=== PATIENT | male | born 1955 ===

== ENCOUNTER 2016-10-16 05:14 | Inpatient (IN) | payer MEDICARE, MEDICAID ==
[2016-10-16] VITALS (16 sets, daily range): BP systolic 100–155; BP diastolic 50–80
[~2016-10-16] VITALS: Ht 157.5 cm; Wt 104.3 kg
[~2016-10-16 05:14] MED LIST: ASPIRIN81 MG ORAL; GLIPIZIDE5 MG ORAL; LANTUS SOL100 UNIT/1 SUBQ; LISINOPRIL20 MG ORAL; METFORMIN HCL1000 M1 ORAL; SIMVASTATIN20 MG ORAL
[2016-10-16] MEDS ORDERED: Bupivacaine w/Epi 0.5% 30ml Vial INJ ONE (06:53)
[2016-10-16] MEDS ORDERED: Surgicel 4in x 8in TOPIC ONE (06:53)
[2016-10-16] MEDS ORDERED: ceFAZolin sod 1 GM in NS 55 ML IVPB ONE (07:00)
[2016-10-16] MEDS ORDERED: LR 1000ml 1,000 ML IVLG SCH (07:13)
[2016-10-16] MEDS ORDERED: Meperidine 25mg/0.5ml Inj IV PRN (07:15)
[2016-10-16] MEDS ORDERED: LORazepam Inj 2mg/ml 1ml IV PRN (07:15)
[2016-10-16] MEDS ORDERED: fentaNYL 100 mcg/2 mL IV PRN (07:15)
[2016-10-16] MEDS ORDERED: Metoclopramide 10mg/2ml Inj IVP PRN (07:15)
[2016-10-16] MEDS ORDERED: Ketorolac 30mg Inj IV PRN (07:15)
[2016-10-16] MEDS ORDERED: DiphenhydrAMINE 50mg/ml Inj IVP PRN (07:15)
[2016-10-16] MEDS ORDERED: Midazolam 2mg/2ml Inj IVP PRN (07:15)
[2016-10-16] MEDS ORDERED: Ketorolac 60mg Inj IV PRN (07:15)
[2016-10-16] MEDS ORDERED: Atropine Inj 1mg/10ml Syr IV PRN (07:15)
[2016-10-16] MEDS ORDERED: Norco 7.5mg/325mg tab ORAL PRN (07:15)
[2016-10-16] MEDS ORDERED: Oxycodone/Acetaminophen 5-325 ORAL PRN (07:15)
[2016-10-16] MEDS ORDERED: Norco 5mg/325mg tab ORAL PRN (07:15)
--- NOTE | 2016-10-16 07:28 | Anethesia Preoperative Eval ---
Anesthesia Pre-op PMH/ROS General Date of Evaluation: Oct 16, 2016 Time of Evaluation: 07:31 Anesthesiologist: Mitzy ASA Score: ASA 3 Mallampati Score Class I : Soft palate, uvula, fauces, pillars visible Class II: Soft palate, uvula, fauces visible Class III: Soft palate, base of uvula visible Class IV: Only hard plate visible Surgeon: Giuliana Diagnosis: Prostate CA Surgical Procedure: Laparoscopic Radical Prostatectomy Anesthesia History: none Family History: no anesthesia problems Allergies: Coded Allergies: No Known Allergies (Unverified , 10/15/16) Medications: see eMAR Past Medical History Cardiovascular: Reports: HTN, other - HL Gastrointestinal/Genitourinary: Reports: GERD, other - Prostate CA Endocrine: Reports: DM Hematology/Immune: Reports: other - Prostate CA Other: obesity - Morbid BMI 43 Anesthesia Pre-op Phys. Exam Physician Exam Last Vital Signs Date Time Temp Pulse Resp B/P Pulse Ox O2 Delivery O2 Flow Rate FiO2 10/16/16 06:03 97.4 74 18 155/80 98 Room Air Constitutional: NAD Neurologic: CN 2-12 intact Cardiovascular: RRR Respiratory: CTA Gastrointestinal: S/NT/ND Airway Exam Mallampati Score: Class II MO: limited ROM: limited Teeth: missing, intact Anesthesia Pre-op A/P Risk Assessment & Plan Assessment: ASA 3 Plan: GA, Glidescope, BIS Status Change Before Surgery: No Pre-Antibiotics Dru Grams Ancef IV Given Within 1 Hr of Incision: Yes Time Given: 07:51 Raúl Kaur MD Oct 16, 2016 07:28
[2016-10-16] MEDS ORDERED: Bupivacaine 0.5% Inj 30 ml vial INJ ONE (07:29)
[2016-10-16] MEDS ORDERED: Midazolam 2mg/2ml Inj ONE (07:30)
[2016-10-16] MEDS ORDERED: Neostigmine 1mg/ml 10ml Inj ONE (07:30)
[2016-10-16] MEDS ORDERED: Glycopyrrolate 0.2mg/ml 1ml Vial ONE (07:30)
[2016-10-16] MEDS ORDERED: Sterile Water Irrig 1000ml IRRIG ONE (07:30)
[2016-10-16] MEDS ORDERED: Ketorolac 30mg Inj ONE (07:30)
[2016-10-16] MEDS ORDERED: LR 1000ml ONE ×2 (07:30)
[2016-10-16] MEDS ORDERED: Propofol 10mg/ml 100ml btl IV ONE (07:30)
[2016-10-16] MEDS ORDERED: Lidocaine 1% MPF 10mg/ml 5ml ONE (07:30)
[2016-10-16] MEDS ORDERED: Nimbex 2mg/ml Inj 10ML IVP ONE (07:30)
[2016-10-16] MEDS ORDERED: NS Irrig 1000ml ONE (07:30)
[2016-10-16] MEDS ORDERED: ProvayBlue 5mg/ml 10ml amp INJ ONE (07:30)
[2016-10-16] MEDS ORDERED: fentaNYL 100 mcg/2 mL IV ONE (07:30)
--- NOTE | 2016-10-16 07:59 | Pre-Procedure Note/Attestation ---
Pre-Procedure Note/Attestation Complete Prior to Procedure Planned Procedure: not applicable Procedure Narrative: laparoscopic prostatectomy Indications for Procedure Pre-Operative Diagnosis: prostate cancer Attestation I attest that I discussed the nature of the procedure; its benefits; risks and complications; and alternatives (and the risks and benefits of such alternatives ), prior to the procedure, with the patient (or the patient's legal agricultural sales representative). I attest that, if there was a reasonable possibility of needing a blood transfusion, the patient (or the patient's legal agricultural sales representative) was given the [facility] standardized written summary, pursuant to the Joesph Nikolay Blood Safety Act ([place] Health and Safety Code # 1645, as amended). I attest that I re-evaluated the patient just prior to the surgery and that there has been no change in the patient's H&P, except as documented below: Juan Giordano MD Oct 16, 2016 07:59
[2016-10-16] MEDS ORDERED: NS Irrig 1000ml IRRIG ONE (08:21)
[2016-10-16] MEDS ORDERED: Acetaminophen (Non formulary) 100 ML IV ONE (09:30)
--- NOTE | 2016-10-16 09:55 | Brief Operative Note ---
Immediate Post Operative Note Operative Note Pre-op Diagnosis: prostate cancer Procedure: Laparoscopic prostatectomy Post-op Diagnosis: same Surgeon: Logan Giordano [place] Attendant: Mazin Rae Anesthesia: general Specimen: yes Complications: none Estimated Blood Loss: minimal Implant(s) used?: No Juan Giordano MD Oct 16, 2016 09:55
[2016-10-16] MEDS ORDERED: HYDROmorphone 1mg/ml Carpuject IVP PRN (10:00)
[2016-10-16] MEDS ORDERED: Ketorolac 30mg Inj IM PRN (10:00)
--- NOTE | 2016-10-16 10:15 | Immediate Post-Op Evaluation ---
Immediate Post-Op Evalulation Immediate Post-Op Evalulation Procedure: Laparoscopic Radical Prostatectomy Date of Evaluation: Oct 16, 2016 Time of Evaluation: 10:24 IV Fluids: 1500 LR Blood Products: 0 Estimated Blood Loss: 200 Urinary Output: 0 Blood Pressure Systolic: 103 Blood Pressure Diastolic: 56 Pulse Rate: 65 Respiratory Rate: 16 O2 Sat by Pulse Oximetry: 100 Temperature (Fahrenheit): 97.7 Pain Score (1-10): 2 Nausea: No Vomiting: No Complications 0 Patient Status: awake, reacts, patent, extubated, none Hydration Status: adequate Dru Grams Ancef IV Given Within 1 Hr of Incision: Yes Time Given: 07:51 Raúl Kaur MD Oct 16, 2016 10:15
[2016-10-16] MEDS: Hydromorphone 0.5mg/0.5ml inj IVP PRN ×2 (10:28→11:11)
[2016-10-16 11:40] LABS: MEAN CORPUSCULAR HEMOGLOBIN 28.2 PG (27.0-31.0); MEAN CORPUSCULAR HGB CONC 31.7 G/DL (32.0-36.0); MEAN CORPUSCULAR VOLUME 89 FL (80-99); MEAN PLATELET VOLUME 6.7 FL (6.5-10.1); PLATELET COUNT 266 K/UL (150-450); RED BLOOD COUNT 5.28 M/UL (4.70-6.10); RED CELL DISTRIBUTION WIDTH 13.5 % (11.6-14.8); WHITE BLOOD COUNT 16.7 K/UL (4.8-10.8)
[2016-10-16 11:51] LABS: ANION GAP 15 (5-15); CALCIUM 8.2 mg/dL (8.6-10.2); CARBON DIOXIDE 25 mEQ/L (20-30); CHLORIDE 99 mEQ/L (98-107); CREATININE 0.8 mg/dL (0.7-1.2); GLOMERULAR FILTRATION RATE > 60 mL/min (>60); HEMOLYSIS 4; POTASSIUM 4.6 mEQ/L (3.4-4.9); SODIUM 139 mEQ/L (135-145)
[2016-10-16 12:01] LABS: BAND NEUTROPHILS % (MANUAL) 2 % (0-8); LYMPHOCYTES % (MANUAL) 10 % (20-45); NEUTROPHILS % (MANUAL) 82 % (45-75); TOTAL CELLS COUNTED 100
[2016-10-16 12:02] LABS: BASOPHILS % (MANUAL) 0 % (0-2); EOSINOPHILS % (MANUAL) 0 % (0-3); PLATELET ESTIMATE ADEQUATE; PLATELET MORPHOLOGY NORMAL
[2016-10-16] MEDS ORDERED: D5 1/2NS w/KCl 20mEq 1,000 ML IV SCH (13:30)
--- NOTE | 2016-10-16 15:17 | History and Physical ---
History of Present Illness General Date patient seen: Oct 16, 2016 Present Illness HPI 61 year old male with hx of HTN, DM, Prostate cancer underwent laparoscopic radical prostatectomy today. Admitted for post op care. Allergies: Coded Allergies: No Known Allergies (Unverified , 10/15/16) Medication History Scheduled Aspirin* (Aspirin*), 81 MG ORAL DAILY, (Reported) Glipizide* (Glipizide*), 5 MG ORAL BIDAC, (Reported) Insulin Glargine (Lantus), 35 SUBQ BEDTIME, (Reported) Lisinopril (Lisinopril*), 20 MG ORAL BID, (Reported) Metformin Hcl* (Metformin Hcl*), 1,000 MG ORAL BIDAC, (Reported) Simvastatin (Zocor), 20 MG ORAL BEDTIME, (Reported) Patient History Healthcare decision maker BRADEN JOSIANE- Resuscitation status Full Code Advanced Directive on File No Past Medical/Surgical History Past Medical/Surgical History: (1) Diabetes (2) HTN (hypertension) (3) Hypercholesteremia (4) Prostate cancer Review of Systems All Other Systems: negative except mentioned in HPI Physical Exam General Appearance: no apparent distress Lines, tubes and drains: peripheral HEENT: normocephalic, atraumatic Neck: non-tender, normal alignment Respiratory/Chest: chest wall non-tender, lungs clear Cardiovascular/Chest: normal peripheral pulses Abdomen: normal bowel sounds, non tender Genitourinary/Rectal: normal genital exam Extremities: normal range of motion Last 24 Hour Vital Signs Date Time Temp Pulse Resp B/P Pulse Ox O2 Delivery O2 Flow Rate FiO2 10/16/16 12:40 97.3 85 17 111/59 95 Room Air 10/16/16 12:15 96.6 84 17 114/58 94 Nasal Cannula 2.0 10/16/16 12:00 97.3 79 16 112/60 93 Nasal Cannula 2.0 10/16/16 11:41 98.0 10/16/16 11:40 98.0 79 14 123/68 96 Nasal Cannula 3.0 10/16/16 11:25 75 18 120/69 100 Nasal Cannula 3.0 10/16/16 11:10 74 14 103/63 100 Nasal Cannula 3.0 10/16/16 10:55 69 15 121/67 100 Simple Mask 6.0 10/16/16 10:50 97.8 10/16/16 10:40 68 16 115/64 100 Simple Mask 6.0 10/16/16 10:28 68 18 106/62 99 Simple Mask 6.0 10/16/16 10:23 69 15 116/68 99 Simple Mask 6.0 10/16/16 10:18 67 26 108/50 99 Simple Mask 6.0 10/16/16 10:15 65 16 100 10/16/16 10:13 97.6 64 18 103/80 99 Simple Mask 6.0 10/16/16 06:03 97.4 74 18 155/80 98 Room Air Intake and Output 10/15/16 10/16/16 19:00 07:00 # Voids 1 Laboratory Tests Test 10/16/16 11:30 White Blood Count 16.7 K/UL (4.8-10.8) H Red Blood Count 5.28 M/UL (4.70-6.10) Hemoglobin 14.9 G/DL (14.2-18.0) Hematocrit 47.0 % (42.0-52.0) Mean Corpuscular Volume 89 FL (80-99) Mean Corpuscular Hemoglobin 28.2 PG (27.0-31.0) Mean Corpuscular Hemoglobin Concent 31.7 G/DL (32.0-36.0) L Red Cell Distribution Width 13.5 % (11.6-14.8) Platelet Count 266 K/UL (150-450) Mean Platelet Volume 6.7 FL (6.5-10.1) Neutrophils (%) (Auto) % (45.0-75.0) Lymphocytes (%) (Auto) % (20.0-45.0) Monocytes (%) (Auto) % (1.0-10.0) Eosinophils (%) (Auto) % (0.0-3.0) Basophils (%) (Auto) % (0.0-2.0) Differential Total Cells Counted 100 Neutrophils % (Manual) 82 % (45-75) H Lymphocytes % (Manual) 10 % (20-45) L Monocytes % (Manual) 6 % (1-10) Eosinophils % (Manual) 0 % (0-3) Basophils % (Manual) 0 % (0-2) Band Neutrophils 2 % (0-8) Platelet Estimate Adequate Platelet Morphology Normal Red Blood Cell Morphology Normal Hypochromasia Sodium Level 139 mEQ/L (135-145) Potassium Level 4.6 mEQ/L (3.4-4.9) Chloride Level 99 mEQ/L (98-107) Carbon Dioxide Level 25 mEQ/L (20-30) Anion Gap 15 (5-15) Blood Urea Nitrogen 8 mg/dL (7-23) Creatinine 0.8 mg/dL (0.7-1.2) Estimat Glomerular Filtration Rate > 60 mL/min (>60) Glucose Level 224 mg/dL (74-106) H Calcium Level 8.2 mg/dL (8.6-10.2) L Height (Feet): 5 Height (Inches): 2.00 Weight (Pounds): 230 Medications Current Medications Medications (Trade) Dose Ordered Sig/Cliff Route PRN Reason Start Time Stop Time Status Last Admin Dose Admin Acetaminophen 650 mg 650 mg Q6H PRN ORAL Mild Pain (Pain Scale 1-3) 10/16/16 10:00 11/15/16 09:59 Cefazolin Sodium/ Dextrose (Ancef/D5W) 110 ml @ 220 mls/hr Q8H IV 10/16/16 16:00 10/17/16 00:29 Dextrose (Dextrose 50%) STAT PRN IV Hypoglycemia 10/16/16 15:00 11/15/16 14:59 Dextrose/ Electrolytes (D5 0.45%NS W/ KCl 20mEq) 1,000 ml @ 100 mls/hr Q10H IV 10/16/16 13:30 11/15/16 13:29 10/16/16 12:59 Glipizide (Glucotrol) 5 mg DAILY ORAL 10/17/16 09:00 11/16/16 08:59 Hydromorphone HCl (Dilaudid) 1 mg Q3H PRN IVP Severe Pain (Pain Scale 7-10) 10/16/16 10:00 10/23/16 09:59 Insulin Aspart (NovoLOG) BEFORE MEALS AND HS SUBQ 10/16/16 16:30 11/15/16 16:29 Ketorolac Tromethamine (Toradol 30mg) 30 mg Q6H PRN IM Moderate Pain (Pain Scale 4-6) 10/16/16 10:00 10/21/16 09:59 Lisinopril (Prinivil) 20 mg BID ORAL 10/16/16 18:00 11/15/16 17:59 Ondansetron HCl (Zofran) 4 mg Q6H PRN IVP Nausea & Vomiting 10/16/16 10:00 11/15/16 09:59 Temazepam (Restoril) 7.5 mg DAILYPRN PRN ORAL Insomnia 10/16/16 10:00 10/23/16 09:59 Assessment/Plan Problem List: (1) laparoscopic retropubic prostatectomy (2) Diabetes ICD Codes: E11.9 - Type 2 diabetes mellitus without complications SNOMED: 59108927 (3) Hypercholesteremia ICD Codes: E78.00 - Pure hypercholesterolemia, unspecified SNOMED: 83938934 (4) Prostate cancer ICD Codes: C61 - Malignant neoplasm of prostate SNOMED: 756792913 (5) HTN (hypertension) ICD Codes: I10 - Essential (primary) hypertension SNOMED: 58537023 Assessment/Plan symptomatic treatment sliding scale insulin coverage pain management enrique IV to 1/2 NS. dvt prophylaxis GORAN CABRAL Oct 16, 2016 15:17
[2016-10-16] MEDS: ceFAZolin sod 2 GM in D5W 110 ML IV SCH ×2 (15:45→23:43)
[2016-10-16] MEDS: NovoLOG Insulin Flexpen SUBQ SCH ×2 (15:59→21:20)
[2016-10-16] MEDS ORDERED: NovoLOG Insulin Flexpen SUBQ SCH (16:30)
[2016-10-16] MEDS: Lisinopril 20mg tab ORAL SCH (17:55)
--- NOTE | 2016-10-16 21:30 | Operative Note - Dictated ---
DATE OF OPERATION: 10/16/2016 SURGEON: Mazin Rae M.D. SOCIAL SCIENCE TEACHER: Juan Giordano M.D. ANESTHESIOLOGIST: Raúl Kaur M.D. PREOPERATIVE DIAGNOSIS: Intraoperative adhesions. POSTOPERATIVE DIAGNOSIS: Intraoperative adhesions. PROCEDURE PERFORMED: Laparoscopic lysis of adhesions. BACKGROUND: The patient is a 61-year-old male who was taken to the operating room by Dr. Juan Giordano for laparoscopic prostatectomy. During the procedure, the dense adhesions in the left lower quadrant were encountered that precludes safe access to the prostate gland and I was requested by Dr. Juan Giordano to swab clean and to perform lysis of adhesions since this procedure is in scope of my surgical qualification. INTRAOPERATIVE FINDINGS: Dense adhesions in left lower quadrant between omentum, sigmoid colon, and anterior abdominal wall. PROCEDURE IN DETAIL: The patient was placed supine. General endotracheal anesthesia was induced. Procedure was started by Dr. Juan Giordano who scrubbed clean. Given the above-mentioned findings, using electrocautery and cold scissors were appropriate. Adhesions between the omentum, anterior abdominal wall, and sigmoid colon were sharply taken down. Hemostasis was confirmed. After that, straight access of the gland was obtained, and Dr. Giordano proceeded with the swab. I inspected the bowel, no injury was found. Mazin Rae M.D. DR: Fabiola JOB#: [id number] CC: ELIZABETH
[2016-10-17 00:14] VITALS: BP 131/74
[2016-10-17 04:00] VITALS: BP 132/69
[2016-10-17] MEDS: NovoLOG Insulin Flexpen SUBQ SCH ×4 (06:21→21:20)
[2016-10-17 08:00] VITALS: BP 131/60
[2016-10-17] MEDS: GlipiZIDE 5mg tab ORAL SCH (08:30)
[2016-10-17] MEDS: Lisinopril 20mg tab ORAL SCH ×2 (08:30→17:41)
[2016-10-17 08:37] LABS: BASOPHILS % (AUTO) 0.5 % (0.0-2.0); EOSINOPHILS % (AUTO) 0.2 % (0.0-3.0); LYMPHOCYTES % (AUTO) 14.6 % (20.0-45.0); MEAN CORPUSCULAR HEMOGLOBIN 29.6 PG (27.0-31.0); MEAN CORPUSCULAR HGB CONC 32.9 G/DL (32.0-36.0); MEAN CORPUSCULAR VOLUME 90 FL (80-99); MONOCYTES % (AUTO) 7.6 % (1.0-10.0); NEUTROPHILS % (AUTO) 77.1 % (45.0-75.0); PLATELET COUNT 242 K/UL (150-450); RED BLOOD COUNT 4.72 M/UL (4.70-6.10); RED CELL DISTRIBUTION WIDTH 13.4 % (11.6-14.8); WHITE BLOOD COUNT 9.5 K/UL (4.8-10.8)
[2016-10-17 08:45] LABS: ANION GAP 13 (5-15); CALCIUM 8.4 mg/dL (8.6-10.2); CARBON DIOXIDE 27 mEQ/L (20-30); CHLORIDE 96 mEQ/L (98-107); CREATININE 0.8 mg/dL (0.7-1.2); GLOMERULAR FILTRATION RATE > 60 mL/min (>60); HEMOLYSIS 3; SODIUM 136 mEQ/L (135-145)
--- NOTE | 2016-10-17 10:26 | 48 Hour Post Anesthesia Eval ---
Post Anesthesia Evaluation Procedure: Laparoscopic Radical Prostatectomy Date of Evaluation: Oct 17, 2016 Time of Evaluation: 06:15 Blood Pressure Systolic: 132 0: 69 Pulse Rate: 78 Respiratory Rate: 18 Temperature (Fahrenheit): 97.7 O2 Sat by Pulse Oximetry: 93 Airway: patent Nausea: No Vomiting: No Pain Intensity: 1 Hydration Status: adequate Cardiopulmonary Status: at baseline Mental Status/LOC: patient returned to baseline Post-Anesthesia Complications: 0 Follow-up care needed: N/A - further care as per primary team JIN BRAVO M.D. Oct 17, 2016 10:26
[2016-10-17] MEDS: Levofloxacin 500mg tab ORAL SCH (10:59)
[2016-10-17 12:00] VITALS: BP 116/64
[2016-10-17 16:00] VITALS: BP 138/71
[2016-10-17] MEDS: Docusate 100mg cap ORAL SCH (17:41)
--- NOTE | 2016-10-17 18:35 | Pulmonology Progress Note ---
Assessment/Plan Problems: (1) laparoscopic retropubic prostatectomy (2) Diabetes (3) Hypercholesteremia (4) Prostate cancer (5) HTN (hypertension) Assessment/Plan improving sliding scale check electrolytes symptomatic treatment Subjective ROS Limited/Unobtainable: No Interval Events: improving, walking around Allergies: Coded Allergies: No Known Allergies (Unverified , 10/15/16) Objective Last 24 Hour Vital Signs Date Time Temp Pulse Resp B/P Pulse Ox O2 Delivery O2 Flow Rate FiO2 10/17/16 17:41 138/71 10/17/16 16:00 97.0 83 19 138/71 95 Room Air 10/17/16 12:00 98.2 77 18 116/64 93 Room Air 10/17/16 10:26 78 18 93 10/17/16 08:30 131/60 10/17/16 08:00 98.4 82 18 131/60 93 Nasal Cannula 2.0 10/17/16 04:00 97.7 78 18 132/69 93 Room Air 10/17/16 00:14 97.9 81 18 131/74 93 Room Air 10/16/16 20:00 97.7 75 18 152/69 95 Nasal Cannula 2.0 Intake and Output 10/16/16 10/17/16 19:00 07:00 Intake Total 2110 ml Output Total 650 ml 450 ml Balance 1460 ml -450 ml IV Total 2110 ml Output Urine Total 450 ml 450 ml Estimated Blood Loss 200 ml # Voids 1 General Appearance: WD/WN HEENT: normocephalic, atraumatic Respiratory/Chest: chest wall non-tender, lungs clear Cardiovascular: normal peripheral pulses, normal rate Abdomen: normal bowel sounds, soft, non tender Genitourinary: normal external genitalia Extremities: no cyanosis, no clubbing Skin: no rash Laboratory Tests 10/17/16 08:15: White Blood Count 9.5, Red Blood Count 4.72, Hemoglobin 13.9L, Hematocrit 42.4, Mean Corpuscular Volume 90, Mean Corpuscular Hemoglobin 29.6, Mean Corpuscular Hemoglobin Concent 32.9, Red Cell Distribution Width 13.4, Platelet Count 242, Mean Platelet Volume 7.0, Neutrophils (%) (Auto) 77.1H, Lymphocytes (%) (Auto) 14.6L, Monocytes (%) (Auto) 7.6, Eosinophils (%) (Auto) 0.2, Basophils (%) (Auto ) 0.5, Sodium Level 136, Potassium Level 4.0, Chloride Level 96L, Carbon Dioxide Level 27, Anion Gap 13, Blood Urea Nitrogen 11, Creatinine 0.8, Estimat Glomerular Filtration Rate > 60, Glucose Level 207H, Calcium Level 8.4L, Free Prostate Specific Antigen [Pending], Percent Free Prostate Specific Ag [Pending] , Prostate Specific Antigen Total [Pending] Current Medications Medications (Trade) Dose Ordered Sig/Cliff Route PRN Reason Start Time Stop Time Status Last Admin Dose Admin Acetaminophen (Tylenol) 650 mg Q6H PRN ORAL Mild Pain (Pain Scale 1-3) 10/16/16 10:00 11/15/16 09:59 Dextrose (Dextrose 50%) STAT PRN IV Hypoglycemia 10/16/16 15:00 11/15/16 14:59 Docusate Sodium (Colace) 100 mg TWICE A DAY ORAL 10/17/16 18:00 11/16/16 17:59 10/17/16 17:41 Glipizide (Glucotrol) 5 mg DAILY ORAL 10/17/16 09:00 11/16/16 08:59 10/17/16 08:30 Hydromorphone HCl (Dilaudid) 1 mg Q3H PRN IVP Severe Pain (Pain Scale 7-10) 10/16/16 10:00 10/23/16 09:59 10/16/16 21:27 Insulin Aspart (NovoLOG) while pt is on npo give o... BEFORE MEALS AND HS SUBQ 10/16/16 16:30 11/15/16 16:29 10/17/16 11:36 Ketorolac Tromethamine (Toradol 30mg) 30 mg Q6H PRN IM Moderate Pain (Pain Scale 4-6) 10/16/16 10:00 10/21/16 09:59 Levofloxacin (Levaquin) 500 mg DAILY ORAL 10/17/16 11:00 10/24/16 10:59 10/17/16 10:59 Lisinopril (Prinivil) 20 mg BID ORAL 10/16/16 18:00 11/15/16 17:59 10/17/16 17:41 Ondansetron HCl (Zofran) 4 mg Q6H PRN IVP Nausea & Vomiting 10/16/16 10:00 11/15/16 09:59 Temazepam (Restoril) 7.5 mg DAILYPRN PRN ORAL Insomnia 10/16/16 10:00 10/23/16 09:59 GORAN CABRAL Oct 17, 2016 18:35
[2016-10-17 20:00] VITALS: BP 140/76
[2016-10-17] MEDS: Lactulose 20gm/30ml UDC ORAL SCH ×2 (22:00→22:17)
[2016-10-18] VITALS: BP 141/83
[2016-10-18 04:00] VITALS: BP 139/81
[2016-10-18] MEDS: NovoLOG Insulin Flexpen SUBQ SCH (06:49)
[2016-10-18 07:00] LABS: BASOPHILS % (AUTO) 0.6 % (0.0-2.0); EOSINOPHILS % (AUTO) 1.3 % (0.0-3.0); LYMPHOCYTES % (AUTO) 22.9 % (20.0-45.0); MEAN CORPUSCULAR HEMOGLOBIN 28.5 PG (27.0-31.0); MEAN CORPUSCULAR HGB CONC 31.8 G/DL (32.0-36.0); MEAN CORPUSCULAR VOLUME 90 FL (80-99); MEAN PLATELET VOLUME 7.2 FL (6.5-10.1); MONOCYTES % (AUTO) 9.7 % (1.0-10.0); NEUTROPHILS % (AUTO) 65.4 % (45.0-75.0); PLATELET COUNT 214 K/UL (150-450); RED BLOOD COUNT 4.79 M/UL (4.70-6.10); RED CELL DISTRIBUTION WIDTH 13.5 % (11.6-14.8); WHITE BLOOD COUNT 8.1 K/UL (4.8-10.8)
[2016-10-18 07:14] LABS: ALANINE AMINOTRANSFERASE 13 U/L (3-41); ALBUMIN/GLOBULIN RATIO 0.9 (1.0-2.7); ANION GAP 12 (5-15); ASPARTATE AMINO TRANSFERASE 16 U/L (5-40); CALCIUM 8.3 mg/dL (8.6-10.2); CARBON DIOXIDE 28 mEQ/L (20-30); CHLORIDE 97 mEQ/L (98-107); CREATININE 0.7 mg/dL (0.7-1.2); GLOMERULAR FILTRATION RATE > 60 mL/min (>60); HEMOLYSIS 3; MAGNESIUM 1.8 mg/dL (1.7-2.5); PHOSPHORUS 2.1 mg/dL (2.5-4.8); POTASSIUM 4.6 mEQ/L (3.4-4.9); SODIUM 137 mEQ/L (135-145); TOTAL PROTEIN 6.9 g/dL (6.6-8.7)
[2016-10-18 08:22] VITALS: BP 143/70
[2016-10-18] MEDS: Levofloxacin 500mg tab ORAL SCH (08:35)
[2016-10-18] MEDS: GlipiZIDE 5mg tab ORAL SCH (08:35)
[2016-10-18 08:36] VITALS: BP 143/70
[2016-10-18] MEDS: Lisinopril 20mg tab ORAL SCH (08:36)
[2016-10-18] MEDS: Lactulose 20gm/30ml UDC ORAL SCH (08:37)
[2016-10-18] MEDS: Docusate 100mg cap ORAL SCH (08:37)
[2016-10-18] MEDS ORDERED: Docusate 100mg cap ORAL SCH (09:00)
--- NOTE | 2016-10-18 10:14 | Pulmonology Progress Note ---
Assessment/Plan Assessment/Plan ASSESSMENT prostate adenocarcinoma s/p 10/16 Laparoscopic radical retropubic prostatectomy with lysis of adhesions postoperative pain HTN DM Hx of Hypercholesteremia PLAN OF CARE s/p surgery course of recovery uneventful biopsy results c/w prostatic adenocarcinoma initially with IVF Garcia with CBI and hand irrigation prn CBI dc Garcia kept , urine clear Garcia changed to leg bag prior to discharge, instructed patient and re care pain management, controlled bowel regimen PT for ambulation tolerated diet ambulated had BM BP management with MARILEE, stable BS management with SS of insulin, stable continue statin stable fro dc home with services scripts provided for abx, stool softener and analgesics fup with surgeon in 1 week case discussed and evaluated by supervising physician Subjective Allergies: Coded Allergies: No Known Allergies (Unverified , 10/15/16) Subjective pain controlled afebrile, no leukocytosis Garcia with clear urine Objective Last 24 Hour Vital Signs Date Time Temp Pulse Resp B/P Pulse Ox O2 Delivery O2 Flow Rate FiO2 10/18/16 08:36 143/70 10/18/16 08:22 97.9 86 20 143/70 94 Room Air 10/18/16 04:00 98.1 77 18 139/81 97 Room Air 10/18/16 00:00 98.6 84 18 141/83 95 Room Air 10/17/16 20:00 98.6 82 18 140/76 94 Room Air 10/17/16 17:41 138/71 10/17/16 16:00 97.0 83 19 138/71 95 Room Air 10/17/16 12:00 98.2 77 18 116/64 93 Room Air 10/17/16 10:26 78 18 93 Intake and Output 10/17/16 10/18/16 19:00 07:00 Intake Total 1050 ml 180 ml Output Total 1450 ml 1625 ml Balance -400 ml -1445 ml Intake Oral 750 ml 180 ml IV Total 300 ml Output Urine Total 1450 ml 1625 ml # Bowel Movements 5 General Appearance: no acute distress, other - A/A/O x 3 German speaking male HEENT: normocephalic, atraumatic, anicteric, mucous membranes moist Respiratory/Chest: lungs clear, no respiratory distress Cardiovascular: normal peripheral pulses, normal rate, regular rhythm Abdomen: normal bowel sounds, soft, non tender, non distended Genitourinary: normal external genitalia, other - Garcia with clear kamaljit color urine Extremities: no edema, pedal pulses normal Neurologic/Psychiatric: no motor/sensory deficits, alert, oriented x 3, responsive Musculoskeletal: normal muscle bulk Laboratory Tests 10/18/16 05:35: White Blood Count 8.1, Red Blood Count 4.79, Hemoglobin 13.6L, Hematocrit 42.9, Mean Corpuscular Volume 90, Mean Corpuscular Hemoglobin 28.5, Mean Corpuscular Hemoglobin Concent 31.8L, Red Cell Distribution Width 13.5, Platelet Count 214, Mean Platelet Volume 7.2, Neutrophils (%) (Auto) 65.4, Lymphocytes (%) (Auto) 22.9, Monocytes (%) (Auto) 9.7, Eosinophils (%) (Auto) 1.3, Basophils (%) (Auto ) 0.6, Sodium Level 137, Potassium Level 4.6, Chloride Level 97L, Carbon Dioxide Level 28, Anion Gap 12, Blood Urea Nitrogen 11, Creatinine 0.7, Estimat Glomerular Filtration Rate > 60, Glucose Level 206H, Calcium Level 8.3L, Phosphorus Level 2.1L, Magnesium Level 1.8, Total Bilirubin 0.4, Aspartate Amino Transf (AST/SGOT) 16, Alanine Aminotransferase (ALT/SGPT) 13, Alkaline Phosphatase 73, Total Protein 6.9, Albumin 3.4L, Globulin 3.5, Albumin/Globulin Ratio 0.9L Current Medications Medications (Trade) Dose Ordered Sig/Cliff Route PRN Reason Start Time Stop Time Status Last Admin Dose Admin Acetaminophen (Tylenol) 650 mg Q6H PRN ORAL Mild Pain (Pain Scale 1-3) 10/16/16 10:00 11/15/16 09:59 Dextrose (Dextrose 50%) STAT PRN IV Hypoglycemia 10/16/16 15:00 11/15/16 14:59 Docusate Sodium (Colace) 100 mg THREE TIMES A DAY ORAL 10/18/16 09:00 11/17/16 08:59 Docusate Sodium (Colace) 100 mg TWICE A DAY ORAL 10/17/16 18:00 11/16/16 17:59 10/17/16 17:41 Glipizide (Glucotrol) 5 mg DAILY ORAL 10/17/16 09:00 11/16/16 08:59 10/18/16 08:35 Hydromorphone HCl (Dilaudid) 1 mg Q3H PRN IVP Severe Pain (Pain Scale 7-10) 10/16/16 10:00 10/23/16 09:59 10/16/16 21:27 Insulin Aspart (NovoLOG) while pt is on npo give o... BEFORE MEALS AND HS SUBQ 10/16/16 16:30 11/15/16 16:29 10/18/16 06:49 Ketorolac Tromethamine (Toradol 30mg) 30 mg Q6H PRN IM Moderate Pain (Pain Scale 4-6) 10/16/16 10:00 10/21/16 09:59 Lactulose (Cephulac) 30 gm THREE TIMES A DAY ORAL 10/17/16 22:00 11/16/16 21:59 10/17/16 22:17 Levofloxacin (Levaquin) 500 mg DAILY ORAL 10/17/16 11:00 10/24/16 10:59 10/18/16 08:35 Lisinopril (Prinivil) 20 mg BID ORAL 10/16/16 18:00 11/15/16 17:59 10/18/16 08:36 Mineral Oil (Fleet's Mineral Oil Enema) 133 ml EVERY OTHER DAY RECTAL 10/19/16 09:00 11/18/16 08:59 Ondansetron HCl (Zofran) 4 mg Q6H PRN IVP Nausea & Vomiting 10/16/16 10:00 11/15/16 09:59 Polyethylene Glycol (Miralax) 17 gm BEDTIME ORAL 10/18/16 21:00 11/17/16 20:59 Sennosides (Senokot) 8.6 mg DAILY ORAL 10/18/16 09:00 11/17/16 08:59 Temazepam (Restoril) 7.5 mg DAILYPRN PRN ORAL Insomnia 10/16/16 10:00 10/23/16 09:59 Gladys Parker NP (Vanchtein) Oct 18, 2016 10:14
[2016-10-18] MEDS ORDERED: LEVOFLOXACIN750 MG ORAL (10:30)
[2016-10-18] MEDS ORDERED: COLACE100 MG ORAL (10:30)
[2016-10-18] MEDS ORDERED: ACETAMINOPHEN-1 EAC1 ORAL ×2 (10:31→11:35)
[2016-10-18 11:12] LABS: PSA % FREE 1.1 % (.); PSA FREE 0.04 ng/mL; PSA TOTAL 3.5 ng/mL (0.0-4.0)
[2016-10-18] MEDS ORDERED: 1/2 NS 1000ml IV ONE (11:34)
[2016-10-18] MEDS ORDERED: Tubing IV Secondary IV ONE (11:34)
[2016-10-18] MEDS ORDERED: LEVAQUIN500 MG ORAL (11:35)
[2016-10-18] MEDS ORDERED: Miralax 17gm pkt ORAL SCH (21:00)
[2016-10-19] MEDS ORDERED: Fleet's Mineral Oil Enema RECTAL SCH (09:00)
--- NOTE | 2016-10-21 09:16 | Operative Note - Dictated ---
DATE OF OPERATION: 10/16/2016 PREOPERATIVE DIAGNOSIS: Prostate cancer. POSTOPERATIVE DIAGNOSIS: Prostate cancer. OPERATION: Laparoscopic radical retropubic prostatectomy. SURGEON: Juan Ibanez M.D. PIPE PRODUCTION WORKER: Mazin Rae M.D. FINDINGS: Enlarged prostate. INDICATION FOR SURGERY: The patient was diagnosed with prostate cancer. Treatment options were explained to him in great length including all potential complications. He signed the consent. Description Of Procedure: He was brought to the operating room, placed in supine position, and prepped and draped in standard fashion. Under general anesthesia, Veress needle was placed. Pneumoperitoneum was created and five trocars were placed in standard position. Dr. Rae started dissection of the colonic adhesions and 00:54 seminal vesicles. After that, seminal vesicles and vas deferens were dissected free from the surrounding adhesions 01:03 each other. After that, dissection was carried anteriorly bladder from the pubis. Endo-KENDALL was used to dorsal venous complex and Harmonic scalpel was used to open endopelvic fascia. 01:18. Anastomosis was made over 20-Palestinian Garcia catheter watertight. Bladder was irrigated. No evidence of leak. Estimated blood loss was approximately 500 mL. The wound was closed in 3 layers. Specimen was removed for pathologic examination. Sponge count and instrument count was correct. Juan Giordano M.D. DR: Sandy JOB#: [id number] CC:
--- NOTE | 2016-10-21 12:38 | Discharge Summary ---
Discharge Summary Hospital Course Date of Admission Oct 16, 2016 at 05:14 Date of Discharge Oct 18, 2016 at 11:35 Admitting Diagnosis prostate cancer Reason for Hospitalization: elective surgery for radical prostatectomy 2 to prostate Ca HPI Aden Mo is a 61 year old male who was admitted on Oct 16, 2016 at 05:14 with prostate cancer for elective surgery Consultations dr Rowland - IM Procedures s/p 10/16 Laparoscopic radical retropubic prostatectomy by dr Giordano s/p 10/[address] of [address] Rae Hospital Course s/p surgery course of recovery uneventful biopsy results c/w prostatic adenocarcinoma initially with IVF Garcia with CBI and hand irrigation prn CBI dc Garcia kept , urine clear Garcia changed to leg bag prior to discharge, instructed patient and re care pain management, controlled bowel regimen PT for ambulation tolerated diet ambulated had BM BP management with MARILEE, stable BS management with SS of insulin, stable continue statin stable fro dc home with services scripts provided for abx, stool softener and analgesics fup with surgeon in 1 week FINAL DIAGNOSES prostate adenocarcinoma s/p 10/16 Laparoscopic radical retropubic prostatectomy with lysis of adhesions postoperative pain HTN DM Hx of Hypercholesteremai Discharge Medications New Medications: Levofloxacin* (Levaquin*) 500 Mg Tablet 500 MG ORAL DAILY, #7 TAB Changed Medications: Acetaminophen With Codeine (T#3) (Tylenol #3 Tab*) Y Tab 1 TAB ORAL Q6H PRN for For Pain, #30 TAB (Changed from: 2 TAB) Continued Medications: Docusate Sodium* (Colace*) 100 Mg Capsule 100 MG ORAL TWICE A DAY, #60 CAP Glipizide* (Glipizide*) 5 Mg Tablet 5 MG ORAL BIDAC, TAB Insulin Glargine (Lantus) 100 Unit/1 Ml Insuln.pen 35 SUBQ BEDTIME, #1 EA 0 Refills Lisinopril (Lisinopril*) 20 Mg Tablet 20 MG ORAL BID, TAB Metformin Hcl* (Metformin Hcl*) 1,000 Mg Tablet 1000 MG ORAL BIDAC, TAB Simvastatin (Zocor) 20 Mg Tablet 20 MG ORAL BEDTIME, TAB Discontinued Medications: Aspirin* (Aspirin*) 81 Mg Tab.chew 81 MG ORAL DAILY, TAB Discharge Condition Upon Discharge: stable Discharge Disposition Patient was discharged to Home with Home Health() Discharge Diagnoses: Parker (Vanchtein),Gladys GALAN Oct 21, 2016 12:38
== END 2016-10-18 11:35 | disposition home health service (06) | DRG 708 ==
LOC: SDSOVERFLO 05:14 → 3E 12:13
DX: C61 Malignant neoplasm of prostate (principal); I10 Essential (primary) hypertension; E11.9 Type 2 diabetes mellitus without complications; E78.00 Pure hypercholesterolemia, unspecified; Z79.4 Long term (current) use of insulin
CPT/HCPCS: 36415; 80048; 80053; 82962; 83735; 84100; 84153; 84154; 85007; 85025; 86850; 86900; 86901; 87081; 94003; 94150; J1815; J2180; J2250; J2405; J2710